=== PATIENT | female | born 1985 | race Caucasian/White ===

== ENCOUNTER 2019-04-10 03:18 | Emergency (ER) | payer OTHER ==
[~2019-04-10] VITALS: Ht 162.6 cm; Wt 63.5 kg
[2019-04-10] MEDS ORDERED: CLONAZEPAM 1 MG1 M1 PO (03:36)
[2019-04-10] MEDS ORDERED: REMERON 30 MG T30 M1 PO (03:36)
[2019-04-10] MEDS ORDERED: ASPIR 8181 MG PO (03:36)
[2019-04-10] MEDS ORDERED: FLEXERIL PO (05:08)
[2019-04-10] MEDS ORDERED: ACETAMINOPHEN-1 EAC1 PO (05:08)
[2019-04-10 05:26] VITALS: BP 112/70
== END 2019-04-10 05:26 | disposition home or self-care (01) ==
LOC: M.ERS 03:18
DX: S20.211A Contusion of right front wall of thorax, initial encounter (principal); Y04.8XXA Assault by other bodily force, initial encounter; Y93.89 Activity, other specified; Y92.89 Other specified places as the place of occurrence of the external cause; Y99.8 Other external cause status; Z90.710 Acquired absence of both cervix and uterus; Z88.5 Allergy status to narcotic agent

== ENCOUNTER 2019-06-09 19:31 | Emergency (ER) | payer OTHER ==
[~2019-06-09] VITALS: Ht 162.6 cm; Wt 64.4 kg
[~2019-06-09 19:31] MED LIST: ACETAMINOPHEN-1 EAC1 PO; ASPIR 8181 MG PO; CLONAZEPAM 1 MG1 M1 PO; FLEXERIL PO; REMERON 30 MG T30 M1 PO
[2019-06-09 20:33] LABS: ABSOLUTE BASOPHILS 0.1 thou/uL (0.0-0.2); ABSOLUTE EOSINOPHILS 0.3 thou/uL (0.0-0.7); ABSOLUTE LYMPHOCYTES 3.8 thou/uL (0.8-5.3); ABSOLUTE MONOCYTES 0.8 thou/uL (0.0-1.2); ABSOLUTE NEUTROPHILS 10.8 thou/uL (1.6-8.1); BASOPHILS 0.4 %; HEMATOCRIT 39.6 % (37.0-47.0); HEMOGLOBIN 13.2 gm/dL (12.0-15.0); MCH 29.6 pg (26.0-34.0); MCHC 33.4 g/dL (28.0-37.0); MCV 88.6 fL (80.0-100.0); MONOCYTES 5.3 %; MPV 6.6 fl. (7.2-11.1); NUCLEATED RBCS 0 /100WBC; PLATELET COUNT* 394 thou/uL (150-400); POLYS 68.3 %; RBC 4.47 mil/uL (4.20-5.00); RDW-CV 15.1 % (10.5-14.5); WBC 15.7 thou/uL (4.0-11.0)
[2019-06-09 20:49] LABS: ANION GAP 9 mmol/L (7-16); BUN 7 mg/dL (7-18); CALCIUM 9.5 mg/dL (8.5-10.1); CHLORIDE 105 mmol/L (98-107); CO2 25 mmol/L (21-32); CREATININE 0.9 mg/dL (0.6-1.3); GLUCOSE 81 mg/dL (70-99); POTASSIUM 3.7 mmol/L (3.5-5.1); SODIUM 139 mmol/L (136-145)
[2019-06-09 20:54] LABS: ALBUMIN 3.7 g/dL (3.4-5.0); ALKALINE PHOSPHATASE 69 U/L (46-116); SGOT 10 U/L (15-37); SGPT 16 U/L (30-65); TOTAL BILIRUBIN 0.4 mg/dL (<0.1-1.0); TOTAL PROTEIN 6.8 g/dL (6.4-8.2); TROPONIN-I LEVEL <0.06 ng/mL (<0.06)
[2019-06-09 23:52] LABS: INFLUENZA A ANTIGEN Negative (Negative); INFLUENZA B ANTIGEN Negative (Negative)
[2019-06-10] MEDS ORDERED: TESSALON PERLE100 MG PO (00:15)
[2019-06-10 00:20] VITALS: BP 101/57
--- NOTE | 2019-06-10 18:01 | EKG ---
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1985 Requested By: Jhonatan Juan Order Number: [id number] MD: Bienvenido Fields Measurements Intervals [place] Rate: 71 P: 42 [place]: 131 QRS: 79 QRSD: 84 T: 57 QT: 363 QTc: 395 Interpretive Statements Sinus rhythm Low voltage, precordial leads RSR' in V1 or V2, probably normal variant Baseline wander in lead(s) II,III,aVR,aVF No previous ECG available for comparison Electronically Signed On 06-10-2019 18:01:12 CDT by Bienvenido Fields [email or web address] <ELECTRONICALLY SIGNED> By: Gretel Fields MD, [facility] 06/10/19 1801 39 39 Gretel Fields MD, [facility] /EPI
== END 2019-06-10 00:25 | disposition home or self-care (01) ==
LOC: M.ERS 19:31
PROVIDERS: Nurse Practitioner Psychiatric/Mental Health
DX: J40 Bronchitis, not specified as acute or chronic (principal); F17.200 Nicotine dependence, unspecified, uncomplicated; F41.9 Anxiety disorder, unspecified; F32.9 Major depressive disorder, single episode, unspecified; Z88.8 Allergy status to other drugs, medicaments and biological substances; Z90.710 Acquired absence of both cervix and uterus

== ENCOUNTER 2019-11-29 17:09 | Emergency (ER) | payer OTHER ==
[~2019-11-29] VITALS: Ht 162.6 cm; Wt 65.8 kg
[~2019-11-29 17:09] MED LIST changes: +TESSALON PERLE100 MG PO
[2019-11-29] MEDS ORDERED: OXCARBAZEPINE150 MG PO (17:26)
[2019-11-29 17:44] LABS: URINE BLOOD 3+ (Negative); URINE GLUCOSE-RANDOM NEGATIVE (Negative); URINE KETONES 2+ (Negative); URINE LEUKOCYTES-REFLEX NEGATIVE (Negative); URINE NITRITE-REFLEX NEGATIVE (Negative); URINE PROTEIN NEGATIVE (Negative); URINE UROBILINOGEN 0.2 E.U./dl (0.2-1.0)
[2019-11-29 17:45] LABS: ICTOTEST (BILI CONFIRMATORY) Negative (Negative); URINE BILIRUBIN 1+ (Negative)
[2019-11-29 17:46] LABS: URINE CLARITY HAZY; URINE COLOR YELLOW
[2019-11-29 17:55] LABS: ABSOLUTE BASOPHILS 0.1 thou/uL (0.0-0.2); ABSOLUTE LYMPHOCYTES 3.7 thou/uL (0.8-5.3); ABSOLUTE MONOCYTES 1.1 thou/uL (0.0-1.2); ABSOLUTE NEUTROPHILS 8.8 thou/uL (1.6-8.1); BASOPHILS 0.6 %; EOSINOPHILS 0.2 %; HEMATOCRIT 40.7 % (37.0-47.0); HEMOGLOBIN 14.1 gm/dL (12.0-15.0); LYMPHOCYTES 27.1 %; MCH 29.8 pg (26.0-34.0); MCHC 34.7 g/dL (28.0-37.0); MCV 85.7 fL (80.0-100.0); MPV 7.2 fl. (7.2-11.1); NUCLEATED RBCS 0 /100WBC; PLATELET COUNT* 462 thou/uL (150-400); POLYS 64.1 %; RBC 4.75 mil/uL (4.20-5.00); RDW-CV 14.6 % (10.5-14.5); WBC 13.7 thou/uL (4.0-11.0)
[2019-11-29 18:03] LABS: CALCIUM 8.9 mg/dL (8.5-10.1); CREATININE 0.9 mg/dL (0.6-1.3); POTASSIUM 3.4 mmol/L (3.5-5.1)
[2019-11-29 18:07] LABS: ALBUMIN 4.1 g/dL (3.4-5.0); TOTAL BILIRUBIN 0.6 mg/dL (<0.1-1.0); TOTAL PROTEIN 7.6 g/dL (6.4-8.2)
[2019-11-29 18:16] LABS: SQUAMOUS >10 Many /LPF (0-3)
[2019-11-29 18:17] LABS: BACTERIA-REFLEX None Seen /HPF (None Seen); CASTS None Seen /LPF (None Seen); CRYSTALS None Seen /LPF (None Seen); URINE RBC 3-10 Few /HPF (0-2); URINE WBC-REFLEX None Seen /HPF (0-5)
[2019-11-29] MEDS ORDERED: PHENERGAN 25 MG25 M1 PO (18:36)
[2019-11-29] MEDS ORDERED: CARAFATE1 GM/10 ML PO (18:39)
[2019-11-29 18:54] VITALS: BP 106/67
--- NOTE | 2019-11-30 11:07 | EKG ---
[place] [address] ELECTROCARDIOGRAM REPORT Name: TOM FRAUSTO Room: [facility]#: [id number] Admission: 11/29/19 Attend Phys: Discharge: 11/29/19 Date of : 87 Date of Service: 11/29/19 181 Report #: [id number] THIS REPORT FOR: //name// 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
== END 2019-11-29 18:54 | disposition home or self-care (01) ==
LOC: M.ERS 17:09
PROVIDERS: Nurse Practitioner Family
DX: E86.0 Dehydration (principal); Z90.710 Acquired absence of both cervix and uterus

== ENCOUNTER 2020-04-25 19:23 | Emergency (ER) | payer OTHER ==
[~2020-04-25] VITALS: Ht 172.7 cm; Wt 67.8 kg
[~2020-04-25 19:23] MED LIST changes: +CARAFATE1 GM/10 ML PO; +OXCARBAZEPINE150 MG PO; +PHENERGAN 25 MG25 M1 PO
[2020-04-25 21:42] LABS: ABSOLUTE BASOPHILS 0.1 thou/uL (0.0-0.2); ABSOLUTE EOSINOPHILS 0.1 thou/uL (0.0-0.7); ABSOLUTE LYMPHOCYTES 2.6 thou/uL (0.8-5.3); ABSOLUTE MONOCYTES 0.7 thou/uL (0.0-1.2); ABSOLUTE NEUTROPHILS 12.9 thou/uL (1.6-8.1); BASOPHILS 0.5 %; EOSINOPHILS 0.6 %; HEMATOCRIT 38.9 % (37.0-47.0); HEMOGLOBIN 13.1 gm/dL (12.0-15.0); LYMPHOCYTES 15.8 %; MCH 30.2 pg (26.0-34.0); MCHC 33.8 g/dL (28.0-37.0); MCV 89.4 fL (80.0-100.0); MONOCYTES 4.4 %; MPV 7.4 fl. (7.2-11.1); NUCLEATED RBCS 0 /100WBC; PLATELET COUNT* 396 thou/uL (150-400); POLYS 78.7 %; RBC 4.35 mil/uL (4.20-5.00); RDW-CV 14.9 % (10.5-14.5); WBC 16.4 thou/uL (4.0-11.0)
[2020-04-25 21:46] LABS: CALCIUM 8.9 mg/dL (8.5-10.1); CREATININE 1.2 mg/dL (0.6-1.3); POTASSIUM 3.2 mmol/L (3.5-5.1)
[2020-04-25 21:50] LABS: ACETAMINOPHEN < 2 ug/mL (10-30); ALBUMIN 3.6 g/dL (3.4-5.0); ALCOHOL < 10 mg/dL (<10); SALICYLATE 3.7 mg/dL (2.8-20.0); TOTAL BILIRUBIN 0.2 mg/dL (<0.1-1.0); TOTAL PROTEIN 6.2 g/dL (6.4-8.2)
[2020-04-25 22:13] LABS: URINE BILIRUBIN NEGATIVE (Negative); URINE BLOOD 1+ (Negative); URINE CLARITY CLEAR; URINE COLOR YELLOW; URINE GLUCOSE-RANDOM NEGATIVE (Negative); URINE KETONES NEGATIVE (Negative); URINE LEUKOCYTES-REFLEX NEGATIVE (Negative); URINE NITRITE-REFLEX NEGATIVE (Negative); URINE PROTEIN NEGATIVE (Negative); URINE UROBILINOGEN 0.2 E.U./dl (0.2-1.0)
[2020-04-25 22:22] LABS: AMP/METHAMP Negative (Negative); BARBITURATES POSITIVE (Negative); BENZODIAZEPINES Negative (Negative); COCAINE Negative (Negative); METHADONE Negative (Negative); OPIATES POSITIVE (Negative); PCP Negative (Negative); THC POSITIVE (Negative)
[2020-04-25 22:28] LABS: HYALINE CASTS 0-3 Few /LPF (None Seen); MUCUS None Seen strn/LPF (None Seen); SQUAMOUS >10 Many /LPF (0-3)
[2020-04-25 22:29] LABS: BACTERIA-REFLEX 1-9 Few /HPF (None Seen); CRYSTALS None Seen /LPF (None Seen); URINE RBC 0-2 Rare /HPF (0-2); URINE WBC-REFLEX 0-5 Rare /HPF (0-5)
[2020-04-26 03:15] VITALS: BP 151/70
[2020-04-27 08:07] LABS: HBsAG-EMPLOYEE EXPOSURE Negative (Negative)
== END 2020-04-26 03:20 | disposition home or self-care (01) ==
LOC: M.ERS 19:23
PROVIDERS: Emergency Medicine
DX: R68.84 Jaw pain (principal); R45.851 Suicidal ideations; F41.9 Anxiety disorder, unspecified; F32.9 Major depressive disorder, single episode, unspecified; Z88.6 Allergy status to analgesic agent; Z90.710 Acquired absence of both cervix and uterus; Z79.899 Other long term (current) drug therapy; Y08.89XA Assault by other specified means, initial encounter; Y93.89 Activity, other specified; Y92.89 Other specified places as the place of occurrence of the external cause; Y99.8 Other external cause status

== ENCOUNTER 2021-08-17 01:51 | Emergency (ER) | payer OTHER ==
[~2021-08-17] VITALS: Ht 162.6 cm; Wt 74.8 kg
[2021-08-17 02:17] LABS: URINE BILIRUBIN NEGATIVE (Negative); URINE BLOOD 1+ (Negative); URINE CLARITY SL HAZY; URINE COLOR YELLOW; URINE GLUCOSE-RANDOM NEGATIVE (Negative); URINE KETONES NEGATIVE (Negative); URINE LEUKOCYTES-REFLEX NEGATIVE (Negative); URINE NITRITE-REFLEX NEGATIVE (Negative); URINE PROTEIN NEGATIVE (Negative); URINE UROBILINOGEN 0.2 E.U./dl (0.2-1.0)
[2021-08-17 02:31] LABS: BACTERIA-REFLEX 1-9 Few /HPF (None Seen); CASTS None Seen /LPF (None Seen); CRYSTALS None Seen /LPF (None Seen); MUCUS 0-3 Light strn/LPF (None Seen); SQUAMOUS >10 Many /LPF (0-3); TRANSITIONAL EPITHEL CELL 0-3 Few /LPF (None Seen); URINE RBC 3-10 Few /HPF (0-2); URINE WBC-REFLEX 0-5 Rare /HPF (0-5)
[2021-08-17 03:46] LABS: AMP/METHAMP Negative (Negative); BARBITURATES Negative (Negative); BENZODIAZEPINES Negative (Negative); COCAINE Negative (Negative); METHADONE Negative (Negative); OPIATES Negative (Negative); PCP Negative (Negative); THC POSITIVE (Negative)
[2021-08-17] MEDS ORDERED: INDOMETHACIN 2525 MG PO (05:15)
[2021-08-17] MEDS ORDERED: HYDROCODON-ACE1 EAC8 PO (05:15)
[2021-08-17] MEDS ORDERED: ZOFRAN ODT4 MG PO (05:15)
[2021-08-17] MEDS ORDERED: OMEPRAZOLE40 MG PO (05:15)
[2021-08-17 05:34] VITALS: BP 112/77
== END 2021-08-17 05:32 | disposition home or self-care (01) ==
LOC: M.ERS 01:51
PROVIDERS: Emergency Medicine
DX: K63.89 Other specified diseases of intestine (principal); F32.9 Major depressive disorder, single episode, unspecified; F41.9 Anxiety disorder, unspecified; Z87.42 Personal history of other diseases of the female genital tract; Z90.711 Acquired absence of uterus with remaining cervical stump; Z79.899 Other long term (current) drug therapy; Z88.8 Allergy status to other drugs, medicaments and biological substances